=== PATIENT | female | born 1930 | race Asian ===

== ENCOUNTER 2021-01-24 12:13 | Inpatient (IN) | payer SELFPAY ==
[~2021-01-24] VITALS: Ht 162.6 cm; Wt 71.2 kg
[2021-01-24] MEDS ORDERED: ASPIRIN 81MG TABLET PO ONE (12:45)
[2021-01-24] MEDS ORDERED: NITROGLYCERIN 0.4MG TABLET SL SL PRN (12:45)
[2021-01-24] MEDS ORDERED: ONDANSETRON HCL 4MG/2ML INJ IV STA (12:52)
[2021-01-24 13:00] LABS: HEMOGLOBIN. 14.7 g/dL (12.0-16.0); MEAN CORPUSCULAR VOLUME 77.9 fL (81.0-99.0); MEAN PLATELET VOLUME 8.4 fl (7.4-10.4); PLATELET 158 x1000/uL (130-400); RED BLOOD CELL COUNT 5.65 mill/uL (4.2-5.4)
[2021-01-24] MEDS ORDERED: SODIUM CHLORIDE 0.9% 1,000 ML IV ONE (13:00)
[2021-01-24 13:08] LABS: CHLORIDE 102 mEq/L (98-107)
[2021-01-24 13:10] LABS: D-DIMER 0.39 mg/L FEU (<0.50); PARTIAL THROMBOPLASTIN TIME 23.7 sec (23.4-31.0); PROTHROMBIN TIME 10.6 sec (9.6-11.0)
[2021-01-24 13:38] LABS: PLATELET ESTIMATE NORMAL
[2021-01-24 17:07] LABS: CLARITY URINE CLEAR (CLEAR); COLOR URINE YELLOW (YELLOW); KETONES URINE NEGATIVE (NEGATIVE); LEUKOCYTE ESTERASE URINE 1+ (NEGATIVE); NITRITE URINE NEGATIVE (NEGATIVE); OCCULT BLOOD URINE NEGATIVE (NEGATIVE); PH URINE 5.5 (4.5-8.0); PROTEIN URINE NEGATIVE (NEGATIVE); SPECIFIC GRAVITY URINE 1.022 (1.005-1.030); UROBILINOGEN URINE 0.2 E.U./dL (0.2-1.0)
[2021-01-24 19:55] VITALS: BP 148/94
[2021-01-24 20:00] VITALS: BP 142/80
[2021-01-24] MEDS ORDERED: DOCUSATE SODIUM 100MG CAPSULE PO PRN (22:45)
[2021-01-24] MEDS ORDERED: IPRATROPIUM/ALBUTEROL 0.5-3(2.5)MG/3ML NEB HHN PRN (22:45)
[2021-01-24] MEDS ORDERED: ACETAMINOPHEN 325MG TABLET PO PRN (22:45)
[2021-01-24] MEDS ORDERED: DIPHENHYDRAMINE 50MG/ML VIAL IV PRN (22:45)
[2021-01-24] MEDS ORDERED: LORAZEPAM 2MG/ML CPJ IV PRN (22:45)
[2021-01-24] MEDS ORDERED: HYDROCODONE/ACETAMINOPHEN 5/325MG TABLET PO PRN (22:45)
[2021-01-24] MEDS ORDERED: HYDRALAZINE 20MG/ML VIAL IV PRN (22:45)
[2021-01-24] MEDS ORDERED: DEXTROSE 50% WATER 50ML SYRINGE IV PRN (22:45)
[2021-01-24] MEDS ORDERED: GUAIFENESIN 200MG/10ML SUGAR FREE UDC PO PRN (22:45)
[2021-01-24] MEDS ORDERED: ONDANSETRON HCL 4MG/2ML INJ IV PRN (22:45)
[2021-01-24] MEDS ORDERED: MAGNESIUM/ALUMINUM HYDROXIDE/SIMETHICONE 30ML UDC PO PRN (22:45)
[2021-01-24] MEDS ORDERED: CLONIDINE 0.1MG TABLET PO PRN (22:45)
[2021-01-24] MEDS ORDERED: MORPHINE SULFATE 2 MG/ML CPJ (NOT FOR IM USE) IV PRN (22:45)
[2021-01-24] MEDS ORDERED: NALOXONE HCL 0.4MG/ML VIAL IV PRN (23:00)
[2021-01-24 23:43] VITALS: BP 154/84
[2021-01-24] MEDS: SODIUM CHLORIDE 0.9% INJ 3ML FLUSH IVF SCH (23:52)
[2021-01-24] MEDS: ENOXAPARIN 40MG/0.4ML SYR SUBCUT SCH (23:57)
[2021-01-25] VITALS: BP 168/88
[2021-01-25 04:00] VITALS: BP 140/70
[2021-01-25] MEDS: INSULIN LISPRO 100 UNITS/ML SUBCUT SCH ×4 (06:28→21:54)
[2021-01-25] MEDS: BLOOD SUGAR DIAGNOSTIC STRIP TEST SCH ×4 (06:28→21:27)
[2021-01-25 06:57] LABS: HEMATOCRIT. 43.4 % (36.0-48.0); HEMOGLOBIN. 14.2 g/dL (12.0-16.0); MEAN CORPUSCULAR HEMOGLOBIN 25.8 pg (28.0-32.0); MEAN CORPUSCULAR VOLUME 78.9 fL (81.0-99.0); MEAN PLATELET VOLUME 8.9 fl (7.4-10.4); PLATELET 142 x1000/uL (130-400)
[2021-01-25 06:58] LABS: CHLORIDE 109 mEq/L (98-107)
[2021-01-25 07:07] LABS: CREATINE KINASE 42 IU/L (26-192)
[2021-01-25 07:10] LABS: CREATINE KINASE MB FRACTION 1.5 ng/mL (0.5-3.6)
[2021-01-25 08:00] VITALS: BP 149/72
[2021-01-25 12:00] VITALS: BP 139/71
[2021-01-25 12:46] LABS: HEPATITIS B SURFACE ANTIGEN NEGATIVE
[2021-01-25 13:48] LABS: PLATELET ESTIMATE NORMAL
[2021-01-25] MEDS: SODIUM CHLORIDE 0.9% INJ 3ML FLUSH IVF SCH ×2 (14:00→21:53)
[2021-01-25 16:00] VITALS: BP 143/84
[2021-01-25 16:35] LABS: CREATINE KINASE 45 IU/L (26-192)
[2021-01-25 16:36] LABS: CREATINE KINASE MB FRACTION 1.2 ng/mL (0.5-3.6)
[2021-01-25 20:00] VITALS: BP 142/91
[2021-01-25] MEDS: ENOXAPARIN 40MG/0.4ML SYR SUBCUT SCH (21:53)
[2021-01-26] VITALS: BP 121/75
[2021-01-26 04:00] VITALS: BP 115/63
[2021-01-26] MEDS: SODIUM CHLORIDE 0.9% INJ 3ML FLUSH IVF SCH (06:35)
[2021-01-26 06:37] LABS: HEMATOCRIT. 40.1 % (36.0-48.0); HEMOGLOBIN. 13.5 g/dL (12.0-16.0); MEAN CORPUSCULAR HEMOGLOBIN 25.8 pg (28.0-32.0); MEAN CORPUSCULAR VOLUME 76.7 fL (81.0-99.0); MEAN PLATELET VOLUME 8.9 fl (7.4-10.4); PLATELET 146 x1000/uL (130-400); RED BLOOD CELL COUNT 5.23 mill/uL (4.2-5.4); RED CELL DISTRIBUTION WIDTH 12.9 % (11.6-14.6)
[2021-01-26] MEDS: INSULIN LISPRO 100 UNITS/ML SUBCUT SCH ×2 (06:37→13:14)
[2021-01-26] MEDS: BLOOD SUGAR DIAGNOSTIC STRIP TEST SCH ×2 (06:37→12:10)
[2021-01-26 07:51] LABS: CHLORIDE 109 mEq/L (98-107)
[2021-01-26 08:00] VITALS: BP 134/73
[2021-01-26 12:00] VITALS: BP 128/69
[2021-01-26 14:19] VITALS: BP 128/69
[2021-01-27 17:48] LABS: PLATELET ESTIMATE NORMAL
== END 2021-01-26 15:53 | disposition home or self-care (01) | DRG 203 ==
LOC: ER 12:13 → ENRESERV 16:43 → 8WST 21:17
PROVIDERS: ADMIT Internal Medicine; ATTEND Internal Medicine
DX: R07.9 Chest pain, unspecified (principal); E87.1 Hypo-osmolality and hyponatremia; F03.90 Unspecified dementia, unspecified severity, without behavioral disturbance, psychotic disturbance, mood disturbance, and anxiety; Z20.822 Contact with and (suspected) exposure to COVID-19; E86.0 Dehydration; I10 Essential (primary) hypertension; R74.01 Elevation of levels of liver transaminase levels; E11.65 Type 2 diabetes mellitus with hyperglycemia
CPT/HCPCS: 36415; 71045; 80048; 80053; 81003; 82550; 82553; 82962; 83036; 83880; 84443; 84484; 85025; 85379; 86705; 86709; 86803; 87340; 87426; 93005; 93306; 99285; J1650; J1815; J2405; J7030